=== PATIENT | female | born 2000 | race Caucasian/White ===

== ENCOUNTER 2021-08-06 11:56 | Emergency (ER) | payer OTHER, SELFPAY ==
[2021-08-06 12:13] VITALS: BP 105/66; PULSE 64; RESP 18; TEMP 36.7; O2SAT 100
[2021-08-06 12:21] VITALS: BP 105/66; PULSE 64; RESP 18; TEMP 36.7; O2SAT 100
--- NOTE | 2021-08-06 12:56 | ED.EAR ---
HPI - Ear Problem General Chief complaint: Ear Stated complaint: Rst Pain Time Seen by Provider: 08/06/21 12:47 Source: patient and RN notes reviewed Mode of arrival: ambulatory Limitations: no limitations History of Present Illness HPI Narrative: Patient presents today complaining of 4-month history of bilateral ear pain, itching, and yellow drainage. Denies decreased hearing. No denies having ear tubes. She currently rates her pain 3/10 and has been taking Tylenol with some relief. States she has not had her ears looked at prior because she decided baby. MD Complaint: ear pain and ear discharge Related Data Home Medications Medication Instructions Recorded Confirmed Daily 08/06/21 Allergies Allergy/AdvReac Type Severity Reaction Status Date / Time Iodine and Iodide Containing Allergy Rash Verified 08/06/21 13:01 Produc Review of Systems Review of Systems: CONSTITUTIONAL: Denies body aches, fever, chills, or sweats. EYES: Denies visual changes, redness, or discharge. ENT: Denies rhinorrhea, congestion, sore throat. + Bilateral ear pain and drainage CARDIOVASCULAR: Denies chest pain, palpitations, or edema. RESPIRATORY: Denies cough or dyspnea. GASTROINTESTINAL: Denies abdominal pain, nausea, vomiting, or diarrhea. GENITOURINARY: Denies dysuria or hematuria. SKIN: Denies rash, itching, or wounds. MUSCULOSKELETAL: Denies back pain, joint pain, or myalgia. NEUROLOGIC: Denies headache, numbness, tingling, or weakness. PSYCH: Denies depression or anxiety. PMFSH Comments At time of signature, I have reviewed and agree with nursing past medical, surgical, social and family history unless otherwise noted. Please see nursing chart for further information. There is no relevant family history pertinent to the presenting complaint Exam Narrative: GENERAL: Well-appearing, well-nourished, and in no acute distress. HEAD: Normocephalic, atraumatic. EYES: EOMI. No redness or drainage. Conjunctivae normal. ENT: Mucous membranes pink and moist. Nares clear. No rhinorrhea. TMs normal bilaterally. Bilateral ear movement pain and tragal tenderness. Bilateral ear canal swelling, left greater than right. Left ear canal erythema. Left ear with moist debris in the ear canal. NECK: Normal AROM. CHEST: No respiratory distress. EXTREMITIES: Normal range of motion. No edema. SKIN: Warm, dry, no rash. Capillary refill normal. Normal skin turgor. NEURO: No focal deficits. Alert and oriented x3. Gait steady. PSYCH: Normal affect. No signs of depression or anxiety. Course Vital Signs Vital signs: Vital Signs Temperature 98.1 F 08/06/21 12:13 Pulse Rate 64 08/06/21 12:13 Respiratory Rate 18 08/06/21 12:13 Blood Pressure 105/66 08/06/21 12:13 Pulse Oximetry 100 08/06/21 12:13 Temperature 98.1 F 08/06/21 12:21 Pulse Rate 64 08/06/21 12:21 Respiratory Rate 18 08/06/21 12:21 Blood Pressure 105/66 08/06/21 12:21 Pulse Oximetry 100 08/06/21 12:21 Reviewed Medical Decision Making Differential Diagnosis Differential Diagnosis: Otitis media, otitis externa, ruptured TM, serous otitis, eustachian tube dysfunction Vital Signs Vital Signs: Vital Signs Temperature 98.1 F 08/06/21 12:13 Pulse Rate 64 08/06/21 12:13 Respiratory Rate 18 08/06/21 12:13 Blood Pressure 105/66 08/06/21 12:13 Pulse Oximetry 100 08/06/21 12:13 Temperature 98.1 F 08/06/21 12:21 Pulse Rate 64 08/06/21 12:21 Respiratory Rate 18 08/06/21 12:21 Blood Pressure 105/66 08/06/21 12:21 Pulse Oximetry 100 08/06/21 12:21 Critical Care Time Critical Care Time Critical Care Time: No Discharge Plan Discharge Clinical Impression: Bilateral otitis externa Qualifiers: Otitis externa type: unspecified type Chronicity: chronic Qualified Code(s): H60.63 - Unspecified chronic otitis externa, bilateral Patient Disposition: Home, Self-Care Condition: Stable Instruction
== END 2021-08-06 13:06 | disposition home or self-care (01) ==
PROVIDERS: Emergency Provider Nurse Practitioner
DX: H60.63 Unspecified chronic otitis externa, bilateral (principal)
CPT/HCPCS: 99203; G0463

== ENCOUNTER 2021-10-14 09:21 | Emergency (ER) | payer OTHER, SELFPAY ==
[2021-10-14 09:33] VITALS: BP 132/65; PULSE 52; RESP 16; TEMP 36.5; O2SAT 100
--- NOTE | 2021-10-14 10:09 | ED.EAR ---
HPI - Ear Problem General Chief complaint: Ear Stated complaint: Ear Pain Time Seen by Provider: 10/14/21 10:09 Source: patient, RN notes reviewed and old records reviewed Mode of arrival: ambulatory Limitations: no limitations History of Present Illness HPI Narrative: Mom 21-year-old female presents to the [facility] with complaints of left ear pain for several days. Patient states that she was recently in [place] in the [facility] when she came home her pain became worse. Has a history of chronic ear infections. Has recently moved to the area and has not seen an ENT. Related Data Home Medications Medication Instructions Recorded Confirmed sertraline 50 mg PO DAILY 10/14/21 10/14/21 Allergies Allergy/AdvReac Type Severity Reaction Status Date / Time Iodine and Iodide Containing Allergy Rash Verified 10/14/21 10:00 Produc Review of Systems Review of Systems: All systems reviewed & are unremarkable except as noted in HPI and below Constitutional: Constitutional: Reports no additional constitutional complaints, Denies chills and Denies fever(s) Eyes: Eyes: Reports no additional eye complaints ENT: Reports as per HPI Comments: Left ear Cardiovascular: Cardiovascular: Reports no additional cardiovascular complaints Respiratory: Respiratory: Reports no additional respiratory complaints Musculoskeletal: Musculoskeletal: Reports no additional musculoskeletal complaints Integumentary/Breasts: Skin/Breast: Reports system reviewed and no additional complaints, except as docu Neurologic: Reports system reviewed and no additional complaints, except as documented Psychiatric: Psychiatric: Reports no additional psychiatric complaints Allergic/Immunologic: Allergic/Immunologic: Reports no additional allergic/immunologic complaints PMFSH Past Medical History Medical History (Updated 10/14/21 @ 18:32 by Barbara Singer) Chronic ear infection Depression Social History Social History (Updated 10/14/21 @ 18:32 by Barbara Singer) Living arrangements: with family Gender identity (if verbalized by the patient): Female Comments At the time of my signature, I reviewed and agree with the nursing past medical, surgical, social, and family history. There is no relevant family history pertinent to the patient complaint. Exam Const: General: healthy appearing, no acute distress and alert Nutritional Appearance: well nourished Orientation/consciousness: patient oriented x3 Limitations: no limitations HENMT: Head: normal to inspection Ears: external ears normal, Abnormal EAC present (Thick white drainage noted in the ear canal) otic discharge purulent on the left and TM abnormal with loss of landmarks on the left Eyes: Pupils: Equal, round and reactive pupils present Neck: Neck: normal visual inspection, no lymphadenopathy and no meningeal signs Chest: Chest palpation & inspection: normal inspection of the chest Resp: Effort & Inspection: normal respiratory effort Auscultation: clear to auscultation bilaterally Cardio: Rate: regular rate Skin: General skin exam: normal color Rashes: no rashes Neuro: General: patient oriented x3, moves all extremities, no meningeal signs and no focal motor deficits Speech: normal speech Gait exam (Neuro): Normal gait present Extrem: General: normal to inspection Psych: Appearance: grossly normal and well kempt Mental Status: mental status grossly normal Affect: normal affect Attitude: cooperative Thought content: Yes Normal thought content present Course Course Emergency Course: Discharge instructions reviewed with patient, as well as provided in writing per nursing staff. The instructions also include specific and strict return/GO TO THE ER as well as f/u information. All questions have been answered, and the patient deny any further questions with discharge and discharge plan. Vital Signs Vital signs: Vital Signs Temperature 97.7 F 10/14/21 09:33 P
== END 2021-10-14 10:22 | disposition home or self-care (01) ==
PROVIDERS: Emergency Provider Nurse Practitioner
DX: H66.015 Acute suppurative otitis media with spontaneous rupture of ear drum, recurrent, left ear (principal)
CPT/HCPCS: 99213; G0463